=== PATIENT | female | born 1995 | race African-American/Black ===

== ENCOUNTER 2017-10-31 12:58 | Emergency (ER) | payer OTHER ==
[~2017-10-31 12:58] MED LIST: METFORMIN HCL500 M3 PO; PROAIR HFA8.5 GM INH
[2017-10-31 14:02] LABS: ABSOLUTE BASOPHIL COUNT 0 /CUMM (0.0-0.2); ABSOLUTE EOSINOPHIL COUNT 0 /CUMM (0.0-0.7); ABSOLUTE GRANULOCYTE CT 6.2 /CUMM (1.4-6.5); ABSOLUTE LYMPH COUNT 0.9 /CUMM (1.2-3.4); ABSOLUTE MONOCYTE COUNT 1.5 /CUMM (0.10-0.60); BASOPHIL % 0.2 % (0.0-2.0); EOSINOPHIL % 0 % (0-5); GRANULOCYTE % 71.5 % (42.2-75.2); HEMATOCRIT 36.9 % (37-47); MEAN CORPUSCULAR HGB 28.2 PG (27.0-31.0); MEAN CORPUSCULAR HGB CONC 33.5 G/DL (33.0-37.0); MEAN CORPUSCULAR VOLUME 84.2 FL (81.0-99.0); MEAN PLATELET VOLUME 11.9 FL (7.4-10.4); PLATELET COUNT 204 /CUMM (130-400); RBC DISTRIBUTION WIDTH 13.2 % (11.5-14.5); RED BLOOD CELL CT 4.39 /CUMM (4.20-5.40); WHITE BLOOD CELL COUNT 8.7 /CUMM (4.8-10.8)
[2017-10-31 15:33] VITALS: BP 105/63
--- NOTE | 2017-10-31 15:44 | ED GENERAL ADULT ---
History of Present Illness General Chief Complaint: General Adult Stated Complaint: GEN WEAKNESS, ? ELEVATED BS Source: patient Exam Limitations: no limitations Vital Signs & Intake/Output Vital Signs & Intake/Output Vital Signs Date Time Temp Pulse Resp B/P B/P Pulse O2 O2 Flow FiO2 Mean Ox Delivery Rate 10/31 1533 99.5 96 18 105/63 97 Room Air 10/31 1531 99.4 10/31 1531 99.4 10/31 1348 102.1 10/31 1348 Room Air 10/31 1317 102.1 10/31 1310 102.1 112 19 109/72 96 Room Air Allergies Coded Allergies: No Known Allergies (09/01/17) Triage Note: PT TO ED WITH C/O GEN WEAKNESS, FREQUENT URINATION AND DECREASED APPETITE. STATES SHE IS A DIABETIC AND HASNT BEEN FULLY COMPLIANT WITH INSULIN. +CHILLS. TEMP 102.1 IN TRIAGE. Triage Nurses Notes Reviewed? yes Onset: Abrupt Duration: day(s): (1-2), changing over time, continues in ED, getting worse Timing: single episode today Injury Environment: home Severity: mild, moderate No Modifying Factors: none LMP (ages 10-50): unknown : No Patient currently breastfeeds: No HPI: 21-year-old female past medical history type 2 diabetes, asthma presents for evaluation of weakness, fatigue, sweats, chills, urinary frequency and urgency. Patient reports that this started yesterday and got worse. She states she has been taking her sugars at home and is been in the 200s. She denies any abdominal pain rashes coughing shortness of breath chest pain dysuria back pain. She is not taking any medicine for her symptoms. She states she has felt this way in the past when her sugars have been very high. She states she has not been eating or drinking very much so she is not taking any insulin today. (Lele Sidhu) Reconcile Medications Albuterol Sulfate (Proair Hfa) 90 MCG HFA.AER.AD 2 PUF INH Q4-6 PRN PRN ASTHMA (Reported) Ibuprofen 800 MG TABLET 1 TAB PO TID PRN pain/fever Metformin HCl 500 MG TABLET 1 TAB PO BID ASTHMA (Reported) Phenazopyridine HCl (Pyridium) 100 MG TABLET 1 TAB PO TID dysuria Sulfamethoxazole/Trimethoprim (Bactrim Ds Tablet) 800 MG-160 MG TABLET 1 TAB PO BID acute cystitis (Jason Lucas [place]) Past History Travel History Traveled to [place] past 21 day No Medical History Any Pertinent Medical History? see below for history Neurological: NONE EENT: NONE Cardiovascular: NONE Respiratory: asthma Gastrointestinal: NONE Hepatic: NONE Renal: NONE Musculoskeletal: NONE Psychiatric: NONE Endocrine: diabetes Blood Disorders: NONE Cancer(s): NONE MANAGER DEVELOPMENT/Reproductive: NONE Surgical History Surgical History: non-contributory Psychosocial History What is your primary language Swazi Tobacco Use: Never used Family History Hx Contributory? No (Lele Sidhu) Review of Systems Review of Systems Constitutional: Reports: fever, malaise, weakness. EENTM: Reports: no symptoms. Respiratory: Reports: no symptoms. Cardiovascular: Reports: no symptoms. GI: Reports: no symptoms. Genitourinary: Reports: see HPI, frequency, urgency. Musculoskeletal: Reports: no symptoms. Skin: Reports: no symptoms. Neurological/Psychological: Reports: no symptoms. Hematologic/Endocrine: Reports: no symptoms. Immunologic/Allergic: Reports: no symptoms. All Other Systems: Reviewed and Negative (Lele Sidhu) Physical Exam Physical Exam General Appearance: well developed/nourished, no apparent distress, alert, awake Head: atraumatic, normal appearance Eyes: Bilateral: normal appearance, PERRL, EOMI. Ears, Nose, Throat: hearing grossly normal Neck: normal inspection, supple, full range of motion Respiratory: normal breath sounds, chest non-tender, no respiratory distress, lungs clear Cardiovascular: normal peripheral pulses, tachycardia Peripheral Pulses: 2+ radial (R), 2+ radial (L) Gastrointestinal: soft, non-tender Back: normal inspection, normal range of motion, no vertebral tenderness, NO cva TENDERNESS Extremities: normal inspection, normal range of motion, no edema Neurologic/Psych: no motor/sensory deficits, awake, alert, oriented x 3, normal gait, normal mood/affect Skin: intact, normal color, warm/dry Lymphatic: no anterior cervical eulalia Core Measures ACS in differential dx? No CVA/TIA Diagnosis: No Sepsis Present: No Sepsis Focused Exam Completed? No (Lele Sidhu) Progress Differential Diagnoses I considered the following diagnoses in my evaluation of the patient: [DKA, UTI, sepsis, viral syndrome, pyelonephritis, kidney stone, cellulitis, pneumonia] Plan of Care: Orders Procedure Date/time Status Add-on Test (ER Only) 10/31 1605 Active CULTURE,URINE 10/31 154 Active URINE 10/31 1312 Complete URINALYSIS 10/31 1312 Complete LACTIC ACID 10/31 131 Complete COMPREHENSIVE METABOLIC PANEL 10/31 131 Complete CBC WITHOUT DIFFERENTIAL 10/31 131 Complete Current Medications Sig/Arlin Start time Last Medication Dose Stop Time Status Admin Ceftriaxone Sodium 1,000 MG ONCE ONE 10/31 161 UNVr (Rocephin) 10/31 1616 Laboratory Tests 10/31/17 1612: Lactic Acid Cancelled 10/31/17 1543: Urinalysis LIGHT H, Urine Color YEL, Urine Clarity CLDY H, Urine pH 6.0, Ur Specific [place] >= 1.030, Urine Protein 30 H, Urine Ketones >=80, Urine Nitrite NEG, Urine Bilirubin NEG, Urine Urobilinogen 0.2, Ur Leukocyte Esterase SMALL H, Ur Microscopic SEDIMENT EXAMINED, Urine RBC 3-5, Urine WBC > 75 H, Ur Epithelial Cells MOD H, Urine Bacteria MANY H, Urine Mucus FEW, Urine Hemoglobin SMALL H, Urine Glucose >=1000 H, Urine Test NEGATIVE 10/31/17 1342: Anion Gap 13, Estimated GFR > 60, BUN/Creatinine Ratio 13.3, Glucose 283 H, Lactic Acid 1.1, Calcium 8.9, Total Bilirubin 0.8, AST 32, ALT 22, Alkaline Phosphatase 50, Total Protein 7.0, Albumin 3.8, Globulin 3.2, Albumin/Globulin Ratio 1.2, CBC w Diff MAN DIFF ORDERED, RBC 4.39, MCV 84.2, MCH 28.2, MCHC 33.5, RDW 13.2, MPV 11.9 H, Gran % 71.5, Lymphocytes % 10.9 L, Monocytes % 17.4 H, Eosinophils % 0, Basophils % 0.2, Absolute Granulocytes 6.2, Segmented Neutrophils 63, Band Neutrophils 7 H, Absolute Lymphocytes 0.9 L, Lymphocytes 11 L, Monocytes 18 H, Absolute Monocytes 1.5 H, Absolute Eosinophils 0, Basophils 1, Absolute Basophils 0, Platelet Estimate VERIFIED BY SMEAR, Normocytic RBCs VERIFIED, Normochromic RBCs VERIFIED Microbiology 10/31 1543 URINE ROUT: Urine Culture - RECD Patient is here for evaluation of weakness fatigue urinary frequency and urgency. On initial evaluation she is a temperature of 102. Her sugar is 283. Labs were ordered patient was medicated with IV fluids and IV Tylenol. Patient is feeling better after fluids Tylenol and ibuprofen. She is now afebrile. Blood work shows negative white blood cell count negative lactic acid. Urine is very infected. Urine cultures blood cultures ordered. Patient was given a dose of Rocephin in the emergency department. She is tolerating fluids no vomiting. She'll be discharged home on Cipro with instructions to continue Tylenol and ibuprofen. Increase fluids. Discussed return precautions in detail follow-up with primary care doctor in a few days patient agrees to plan Initial ED EKG: none (Lele Sidhu) Departure Departure Disposition: HOME OR SELF CARE Condition: Stable Clinical Impression Primary Impression: Pyelonephritis Referrals: Patient Has No Primary Care Dr (PCP/Family) Additional Instructions: Take antibiotics as directed for the full course. Ibuprofen 800 mg every 8 hours with food as needed for pain area Tylenol 1000 mg every 6 hours as needed. Drink plenty of fluids. Make a follow-up with her primary care doctor to review all result of today's visit. Return with any concerns. Departure Forms: Customer Survey General Discharge Information (Lele Sidhu) Departure Prescriptions: Current Visit Scripts Ibuprofen 1 TAB PO TID PRN pain/fever #30 TAB PA/BMX RIDER Co-Sign Statement Statement: ED Attending supervision documentation- [] I saw and evaluated the patient. I have also reviewed all the pertinent lab results and diagnostic results. I agree with the findings and the plan of care as documented in the PA's/BMX RIDER's documentation. [X] I have reviewed the ED Record and agree with the PA's/BMX RIDER's documentation. [] Additions or exceptions (if any) to the PAs/BMX RIDER's note and plan are summarized below: [] (Lucas Gomez DO) Critical Care Note Critical Care Note Critical Care Time: non-applicable (Lele Sidhu)
[2017-10-31] MEDS ORDERED: IBUPROFEN800 M1 PO (16:15)
[2017-10-31] MEDS ORDERED: CIPRO500 M1 PO (16:15)
[2017-11-05] MEDS ORDERED: PYRIDIUM100 M1 PO (08:50)
[2017-11-05] MEDS ORDERED: BACTRIM DS TAB1 EACH PO (08:50)
== END 2017-10-31 16:26 ==
LOC: ERH 12:58
PROVIDERS: Physician Assistant Medical
DX: N12 Tubulo-interstitial nephritis, not specified as acute or chronic (principal); R53.1 Weakness; J45.909 Unspecified asthma, uncomplicated
CPT/HCPCS: 81001; 81025; 87086; 87147; 96374; 96375; J0131; J0696

== ENCOUNTER 2017-11-01 15:03 | Emergency (ER) | payer OTHER ==
[~2017-11-01] VITALS: Ht 160 cm; Wt 142.4 kg
[~2017-11-01 15:03] MED LIST changes: +CIPRO500 M1 PO; +IBUPROFEN800 M1 PO
[2017-11-01 15:16] VITALS: BP 114/78
[2017-11-05] MEDS ORDERED: PYRIDIUM100 M1 PO (08:50)
[2017-11-05] MEDS ORDERED: BACTRIM DS TAB1 EACH PO (08:50)
== END 2017-11-01 16:24 | disposition admitted as inpatient to this hospital (09) ==
LOC: ERH 15:03
DX: N39.0 Urinary tract infection, site not specified (principal)
CPT/HCPCS: 81001; 81025; 99281